=== PATIENT | female | born 1960 | race Caucasian/White ===

== ENCOUNTER 2016-10-07 09:54 | Emergency (ER) | payer OTHER ==
[~2016-10-07] VITALS: Ht 162.6 cm; Wt 78.0 kg
[2016-10-07 09:57] VITALS: BP 116/87; PULSE 128; RESP 24; TEMP 97.4; O2SAT 95
[2016-10-07] MEDS ORDERED: SODIUM CHLOR 0.9% 1000 ML INJ 1,000 ML IV SCH (10:20)
[2016-10-07 10:27] VITALS: RESP 17; O2SAT 98
[2016-10-07] MEDS ORDERED: SODIUM CHLORIDE 0.9% FLUSH 5 ML FLUSH IVF PRN (10:30)
[2016-10-07] MEDS ORDERED: ONDANSETRON HCL 4 MG/2 ML VIAL IVP ONE (10:30)
[2016-10-07] MEDS ORDERED: MORPHINE SULFATE 4 MG/ML INJ IV PUSH ONE (10:30)
[2016-10-07] MEDS ORDERED: LINA145C PO (10:36)
[2016-10-07] MEDS ORDERED: BUSP5TAB PO (10:36)
[2016-10-07] MEDS ORDERED: DULO20 PO (10:36)
[2016-10-07] MEDS ORDERED: MONT10TA2 PO (10:36)
[2016-10-07] MEDS ORDERED: DIFL500T PO (10:36)
[2016-10-07] MEDS ORDERED: SIMV20TA PO (10:36)
[2016-10-07] MEDS ORDERED: GABA100C4 PO (10:36)
[2016-10-07] MEDS ORDERED: FLUTI220I INH (10:36)
[2016-10-07] MEDS ORDERED: TRAM50TA PO (10:36)
[2016-10-07] MEDS ORDERED: PATA0.2S EACH EYE (10:36)
[2016-10-07] MEDS ORDERED: ZOFR4TAB PO (10:36)
[2016-10-07 10:51] LABS: AUTOMATED NEUTROPHIL # 13.6 TH/MM3 (1.8-7.7); BASOPHIL % 0.1 % (0.0-2.0); EOSINOPHIL % 0.1 % (0.0-4.0); HEMATOCRIT 38.7 % (35.0-46.0); HEMO FLAGS DIFF FINAL; LYMPH % 13.8 % (9.0-44.0); LYMPHOCYTE # 2.4 TH/MM3 (1.0-4.8); MEAN CORPUSCULAR HEMOGLOBIN 29.8 PG (27.0-34.0); MEAN CORPUSCULAR HGB CONC 33.8 % (32.0-36.0); MONO % 8.1 % (0.0-8.0); NEUT % 77.9 % (16.0-70.0); PLATELET COUNT 273 TH/MM3 (150-450); RED CELL DISTRIBUTION WIDTH 14.2 % (11.6-17.2); WHITE BLOOD COUNT 17.5 TH/MM3 (4.0-11.0)
[2016-10-07 10:55] LABS: APTT (PATIENT) 36.7 SEC (24.3-30.1); INTERNATIONAL NORMALIZED RATIO 1.1 RATIO; PROTHROMBIN TIME - PATIENT 12.4 SEC (9.8-11.6)
[2016-10-07 11:20] LABS: ALT (GPT) 15 U/L (10-53); ANION GAP 9 MEQ/L (5-15); AST (GOT) 14 U/L (15-37); BICARBONATE 28.6 MEQ/L (21.0-32.0); BLOOD UREA NITROGEN 19 MG/DL (7-18); CHLORIDE 101 MEQ/L (98-107); GLOMERULAR FILTRATION RATE 44 ML/MIN (>89); POTASSIUM 3.5 MEQ/L (3.5-5.1); SODIUM (NA) 139 MEQ/L (136-145)
[2016-10-07 11:23] LABS: ALKALINE PHOSPHATASE 99 U/L (45-117); TOTAL BILIRUBIN ADULT 0.7 MG/DL (0.2-1.0)
[2016-10-07 11:42] LABS: BLOOD, URINE TRACE (NEG); COMMENT (UR) CULT NOT INDICATED; CULTURE IF INDICATED CULT NOT INDICATED; GLUCOSE,URINE NEG (NEG); GRANULAR CAST, URINE 1 /lpf; HYALINE CAST, URINE 13 /lpf (RARE); KETONE, URINE NEG (NEG); MUCUS URINE FEW /lpf (OCC); NITRITE,URINE NEG (NEG); SQUAMOUS EPITHELIAL CELL URINE 1 /hpf (0-5); TRANSITIONAL EPI CELLS, URINE <1 /hpf; URINE COLOR YELLOW (YELLW/STRAW)
[2016-10-07] MEDS ORDERED: HYDROmorphone HCL PF 1 MG/ML VIAL IV PUSH ONE (12:15)
[2016-10-07] MEDS ORDERED: IOHEXOL 350 MG/ML 10 ML VIAL (for RAD DIAG) IV ONE (12:27)
[2016-10-07 12:34] VITALS: BP 108/53; PULSE 82; RESP 16; O2SAT 99
--- NOTE | 2016-10-07 13:47 | RADRPT ---
EXAM DATE/TIME: 10/07/2016 12:21 [facility] COMPARISON: No previous studies available for comparison. INDICATIONS : Abdomen pain, nausea for one week. IV CONTRAST: 97 cc Omnipaque 350 (iohexol) IV ORAL CONTRAST: No oral contrast ingested. RADIATION DOSE: 11.06 CTDIvol (mGy) MEDICAL HISTORY : Gastroesophageal reflux disease. Inflammatory bowel disease. Fibromyalgia SURGICAL HISTORY : None. ENCOUNTER: Initial ACUITY: 1 day PAIN SCALE: 7/10 LOCATION: abdomen TECHNIQUE: Volumetric scanning of the abdomen and pelvis was performed. Using automated exposure control and ad justment of the mA and/or kV according to patient size, radiation dose was kept as low as reasonably achievable to obtain optimal diagnostic quality images. FINDINGS: LOWER LUNGS: The visualized lower lungs are clear. LIVER: Distended gallbladder. No pericholecystic inflammatory changes. Liver is homogeneous and within annelise l limits. SPLEEN: Normal size without lesion. PANCREAS: Within normal limits. KIDNEYS: Normal in size and shape. There is no mass, stone or hydronephrosis. ADRENAL GLANDS: Within normal limits. VASCULAR: There is no aortic aneurysm. BOWEL/MESENTERY: There are prominent focal inflammatory changes adjacent to the inferior aspect of the cecum. Strandin g and hazy opacity is seen in the soft tissues between the inferior aspect of the cecum and the super ior wall of the mid sigmoid colon. The appendix is not definitively identified. Small amount of free fluid in the pelvis. No evidence of free air. No bowel dilatation. ABDOMINAL WALL: Within normal limits. RETROPERITONEUM: There is no lymphadenopathy. BLADDER: No wall thickening or mass. REPRODUCTIVE: Within normal limits. INGUINAL: There is no lymphadenopathy or hernia. MUSCULOSKELETAL: Within normal limits for patient age. CONCLUSION: Prominent focal inflammatory changes adjacent to the inferior tip of the cecum. Appendix not identifi ed but there is elongated soft tissue density between the cecum and adjacent sigmoid colon. In the pr oper clinical setting and if the patient has not had previous appendectomy, the findings remain suspi cious for possible appendicitis. A repeat scan with oral contrast and sufficient delay for oral contr ast to reach the cecum may be beneficial. No evidence of abscess or free air. Romero Michelle MD on October 07, 2016 at 13:32 Board Certified Radiologist. This report was verified electronically.
[2016-10-07] MEDS ORDERED: DIATRIZOATE MEGLUM/DIATRIZOATE SOD 9 ML CUP ONE (14:12)
[2016-10-07 15:28] VITALS: BP 130/75; PULSE 93; RESP 17; O2SAT 96
--- NOTE | 2016-10-07 17:18 | RADRPT ---
EXAM DATE/TIME: 10/07/2016 16:43 [facility] COMPARISON: No previous studies available for comparison. INDICATIONS : Abdomen pain, lower right side. ORAL CONTRAST: Prescribed oral contrast ingested. RADIATION DOSE: 10.41 CTDIvol (mGy) MEDICAL HISTORY : Gastroesophageal reflux disease. Inflammatory bowel disease. Fibromyalgia SURGICAL HISTORY : None. ENCOUNTER: Initial ACUITY: 1 day PAIN SCALE: 5/10 LOCATION: Abdomen TECHNIQUE: Volumetric scanning of the abdomen and pelvis was performed. Using automated exposure control and ad justment of the mA and/or kV according to patient size, radiation dose was kept as low as reasonably achievable to obtain optimal diagnostic quality images. FINDINGS: LOWER LUNGS: The visualized lower lungs are clear. LIVER: Homogeneous density without lesion. There is no dilation of the biliary tree. No calcified gallston es. SPLEEN: Normal size without lesion. PANCREAS: Within normal limits. KIDNEYS: Normal in size and shape. There is no mass, stone, or hydronephrosis. ADRENAL GLANDS: Within normal limits. VASCULAR: There is no aortic aneurysm. BOWEL/MESENTERY: There is some soft tissue prominence along the cecum. There are some inflammatory changes intimately associated with the cecum and sigmoid colon. A normal appendix is not seen.. There is no free intrap eritoneal air or fluid. ABDOMINAL WALL: Within normal limits. RETROPERITONEUM: There is no lymphadenopathy. BLADDER: No wall thickening or mass. REPRODUCTIVE: Within normal limits. INGUINAL: There is no lymphadenopathy or hernia. MUSCULOSKELETAL: Within normal limits for patient age. CONCLUSION: There is some soft tissue prominence involving the cecum. There is some inflammatory changes intimate ly associated with the cecum and adjacent sigmoid colon. A normal appendix is not seen. This could be related to colitis. No perforation or abscess. Sherman Mallory MD on October 07, 2016 at 17:11 Board Certified Radiologist. This report was verified electronically.
[2016-10-07] MEDS ORDERED: oxyCODONE/ACETAMINOPHEN 5 MG/325 MG TAB PO ONE (17:30)
[2016-10-07] MEDS ORDERED: FAMOTIDINE 20 MG TAB PO ONE (17:30)
[2016-10-07] MEDS ORDERED: METR-1 PO (18:21)
[2016-10-07] MEDS ORDERED: CIPR-9 PO (18:21)
[2016-10-07] MEDS ORDERED: HYDR-3533 PO (18:21)
--- NOTE | 2016-10-07 18:21 | PD ---
HPI Chief Complaint: GI Complaint Time Seen by Provider: 10:07 Travel History International Travel<30 days: No Contact w/Intl Traveler<30days: No Traveled to known affect area: No History of Present Illness HPI Patient is a 56 year old female with history of IBS, who comes in complaining of abdominal pain. She says she has had some nausea, but denies vomiting. She says the nausea has been going on for the past week. She reports the pain is all over. She says she seems to be urinating on herself due to pain in her abdomen, she is unable to move quickly enough to get to the bathroom. She denies dysuria, but has had some suprapubic pain. She denies fever or chills. She denies chest pain or SOB. PFSH Past Medical History Arthritis: Yes Gastrointestinal Disorders: Yes (IBS) GERD: Yes Medical other: Yes (FIBROMYALGIA) Respiratory: Yes (ASTHMA) Pneumonia: Yes (ASPIRATION PNEUMONIA S/P SX) ?: Not Menopausal: Yes Past Surgical History Tonsillectomy: Yes Social History Alcohol Use: Yes (RARE) Tobacco Use: No Substance Use: No Allergies-Medications (Allergen,Severity, Reaction): Coded Allergies: Codeine (Verified Allergy, Intermediate, Itching, 10/07/16) Reported Meds & Prescriptions Reported Meds & Active Scripts Active Reported Flovent Hfa 12 GM Inh (Fluticasone Propionate) 220 Mcg/Act Inh 2 Puff INH BID Use daily at the same time. Tramadol (Tramadol HCl) 50 Mg Tab 100 Mg PO QID PRN Cymbalta DR (Duloxetine HCl) 20 Mg Capdr 60 Mg PO DAILY Simvastatin 20 Mg Tab 20 Mg PO HS Gabapentin 100 Mg Cap 200 Mg PO BID PRN Pataday Opth Drops (Olopatadine HCl) 0.2 % Drops 1 Drop EACH EYE DAILY PRN Singulair (Montelukast Sodium) 10 Mg Tab 10 Mg PO HS Diflunisal 500 Mg Tab 500 Mg PO BID Buspirone (Buspirone HCl) 5 Mg Tab 5 Mg PO BID PRN Zofran (Ondansetron HCl) 4 Mg Tab 4 Mg PO Q6HR PRN Review of Systems Except as stated in HPI: all other systems reviewed are Neg General / Constitutional: No: Fever, Chills HENT: No: Headaches Cardiovascular: No: Chest Pain or Discomfort Respiratory: No: Shortness of Breath Gastrointestinal: Positive: Nausea, Abdominal Pain, No: Vomiting Genitourinary: No: Dysuria Skin: No Rash, No Change in Pigmentation Neurologic: No: Weakness, Dizziness, Sensory Disturbance Physical Exam Narrative GENERAL: Awake and alert, in no acute distress. SKIN: Warm and dry. HEAD: Atraumatic. Normocephalic. EYES: Pupils equal and round. No scleral icterus. ENT: Mucous membranes pink and moist. NECK: Trachea midline. No JVD. CARDIOVASCULAR: Regular rate and rhythm. No murmur appreciated. RESPIRATORY: No accessory muscle use. Clear to auscultation. Breath sounds equal bilaterally. GASTROINTESTINAL: Abdomen soft, nondistended. Diffusely tender to palpation, voluntary guarding, no rebound. MUSCULOSKELETAL: No obvious deformities. No clubbing. No cyanosis. No edema. NEUROLOGICAL: Awake and alert. No obvious cranial nerve deficits. Motor grossly within normal limits. Normal speech. No sensory disturbance. PSYCHIATRIC: Appropriate mood and affect; insight and judgment normal. Data Data Last Documented VS Vital Signs Date Time Temp Pulse Resp B/P Pulse Ox O2 Delivery O2 Flow Rate FiO2 10/07/16 15:28 93 17 130/75 96 Room Air 10/07/16 09:57 97.4 Orders Complete Blood Count With Diff (10/07/16 10:20) Comprehensive Metabolic Panel (10/07/16 10:20) Lipase (10/07/16 10:20) Prothrombin Time / Inr (Pt) (10/07/16 10:20) Act Partial Throm Time (Ptt) (10/07/16 10:20) Urinalysis - C+S If Indicated (10/07/16 10:20) Ua Includes Microscopic (10/07/16 10:20) Ct Abd/Pel W Iv Contrast(Rout) (10/07/16 10:20) Iv Access Insert/Monitor (10/07/16 10:20) Ecg Monitoring (10/07/16 10:20) Oximetry (10/07/16 10:20) Morphine Inj (Morphine Inj) (10/07/16 10:30) Ondansetron Inj (Zofran Inj) (10/07/16 10:30) Sodium Chlor 0.9% 1000 Ml Inj (Ns 1000 M (10/07/16 10:20) Sodium Chloride 0.9% Flush (Ns Flush) (10/07/16 10:30) Hydromorphone Pf Inj (Dilaudid Pf Inj) (10/07/16 12:15) Iohexol 350 Inj (Omnipaque 350 Inj) (10/07/16 12:27) Ct Abd/Pel W/O Iv Contrast (10/07/16 ) Oral Contrast - Adult (10/07/16 14:02) Diatrizoate Liq ( Gastroyumiko Liq) (10/07/16 14:12) Famotidine (Pepcid) (10/07/16 17:30) Oxycodone-Acetamin 5-325 Mg (Percocet (10/07/16 17:30) Labs Laboratory Tests Test 10/07/16 10/07/16 10:35 11:20 White Blood Count 17.5 TH/MM3 Red Blood Count 4.40 MIL/MM3 Hemoglobin 13.1 GM/DL Hematocrit 38.7 % Mean Corpuscular Volume 88.0 FL Mean Corpuscular Hemoglobin 29.8 PG Mean Corpuscular Hemoglobin 33.8 % Concent Red Cell Distribution Width 14.2 % Platelet Count 273 TH/MM3 Mean Platelet Volume 7.6 FL Neutrophils (%) (Auto) 77.9 % Lymphocytes (%) (Auto) 13.8 % Monocytes (%) (Auto) 8.1 % Eosinophils (%) (Auto) 0.1 % Basophils (%) (Auto) 0.1 % Neutrophils # (Auto) 13.6 TH/MM3 Lymphocytes # (Auto) 2.4 TH/MM3 Monocytes # (Auto) 1.4 TH/MM3 Eosinophils # (Auto) 0.0 TH/MM3 Basophils # (Auto) 0.0 TH/MM3 CBC Comment DIFF FINAL Differential Comment Prothrombin Time 12.4 SEC Prothromb Time International 1.1 RATIO Ratio Activated Partial 36.7 SEC Thromboplast Time Sodium Level 139 MEQ/L Potassium Level 3.5 MEQ/L Chloride Level 101 MEQ/L Carbon Dioxide Level 28.6 MEQ/L Anion Gap 9 MEQ/L Blood Urea Nitrogen 19 MG/DL Creatinine 1.25 MG/DL Estimat Glomerular Filtration 44 ML/MIN Rate Random Glucose 91 MG/DL Calcium Level 9.4 MG/DL Total Bilirubin 0.7 MG/DL Aspartate Amino Transf 14 U/L (AST/SGOT) Alanine Aminotransferase 15 U/L (ALT/SGPT) Alkaline Phosphatase 99 U/L Total Protein 7.7 GM/DL Albumin 3.5 GM/DL Lipase 63 U/L Urine Color YELLOW Urine Turbidity CLEAR Urine pH 5.0 Urine Specific [place] 1.014 Urine Protein NEG mg/dL Urine Glucose (UA) NEG mg/dL Urine Ketones NEG mg/dL Urine Occult Blood TRACE Urine Nitrite NEG Urine Bilirubin NEG Urine Urobilinogen LESS THAN 2.0 MG/DL Urine Leukocyte Esterase NEG Urine RBC 1 /hpf Urine WBC 4 /hpf Urine Squamous Epithelial 1 /hpf Cells Urine Transitional Epithelial <1 /hpf Cells Urine Hyaline Casts 13 /lpf Urine Granular Casts 1 /lpf Urine Mucus FEW /lpf Microscopic Urinalysis Comment CULT NOT INDICATED MDM Medical Decision Making Medical Screen Exam Complete: Yes Emergency Medical Condition: Yes Differential Diagnosis Colitis versus diverticulitis versus pancreatitis versus UTI versus appendicitis Narrative Course Patient is a 56-year-old female comes in complaining of abdominal pain. Exam shows diffuse tenderness. IV established, labs sent. Labs show a white blood cell count of 17. Given IV fluids, morphine, Zofran. Patient felt better initially, but then pain returned. Given second dose of morphine. The abdomen and pelvis performed with IV contrast only, could not rule out appendicitis. Patient then given oral contrast and CT was repeated. This CT shows no evidence of appendicitis, but does show colitis. Patient given a dose of Percocet. Will be discharged with Cipro and Flagyl. Will be given a prescription for pain medicine as well. Patient advised follow- up with her doctor. Advised to drink plenty of fluids. Advised to return to the ED as needed for any worsening symptoms. Patient is comfortable with discharge at this time. Diagnosis Primary Impression: Colitis Patient Instructions: Colitis (ED), General Instructions Additional Instructions: Make sure to take all of your antibiotics. Do not drink any alcohol while taking these antibiotics, you will become violently ill. You can take the Lortab as needed for severe pain, do not combine it with tylenol as it has tylenol in it. Follow up with your doctor. Return to the ED as needed for any worsening symptoms. Scripts Hydrocodone-Acetaminophen (Lortab)5-325 Mg Tab1 Tab PO Q6H PRN (PAIN) #10 TAB Ref 0 Prov:Nuris Aquino MD 10/07/16 Metronidazole (Flagyl)500 Mg [id number] Mg PO TID 7 Days Ref 0 Prov:Nuris Aquino MD 10/07/16 Ciprofloxacin (Cipro)500 Mg [id number] Mg PO BID 7 Days Ref 0 Prov:Nuris Aquino MD 10/07/16 Disposition: 01 DISCHARGE HOME Condition: Stable Nuris Aquino MD Oct 07, 2016 18:21
== END 2016-10-07 19:23 | disposition home or self-care (01) ==
LOC: NEPA 09:54
DX: K52.9 Noninfective gastroenteritis and colitis, unspecified (principal); D72.829 Elevated white blood cell count, unspecified; Z87.39 Personal history of other diseases of the musculoskeletal system and connective tissue; Z87.19 Personal history of other diseases of the digestive system; Z87.09 Personal history of other diseases of the respiratory system
CPT/HCPCS: 74176; 74177; 80053; 81001; 83690; 85025; 85610; 85730; 96361; 96374; 96375; 99284; J1170; J2270; J2405; J7030; Q9963; Q9967